=== PATIENT | male | born 1990 | race Caucasian/White ===

== ENCOUNTER 2020-09-12 03:39 | Emergency (ER) | payer SELFPAY ==
[~2020-09-12] VITALS: Ht 175.3 cm; Wt 75.0 kg
[2020-09-12 03:41] VITALS: BP 126/90
== END 2020-09-12 04:55 | disposition left against medical advice (07) ==
LOC: ER 03:39
DX: R10.9 Unspecified abdominal pain (principal)
CPT/HCPCS: 99283